=== PATIENT | male | born 2005 | race Caucasian/White ===

== ENCOUNTER 2024-09-04 18:48 | Inpatient (IN) ==
[2024-09-04 19:23] LABS: Basophils # (auto) 0.02 K/uL (0.00-0.20); Basophils % (auto) 0.2 %; Eosinophils # (auto) 0.07 K/uL (0.00-0.50); Eosinophils % (auto) 0.8 %; Hematocrit (blood only) 47.6 % (42.0-52.0); Hemoglobin 16.2 g/dl (14.0-18.0); Immature Granulocytes # (auto) 0.02 K/uL (0.01-0.20); Immature Granulocytes % (auto) 0.2 %; Lymphocytes # (auto) 0.42 K/uL (1.20-3.40); Lymphocytes % (auto) 4.8 %; Mean Corpuscular Hemoglobin 30.2 pg (25.0-34.0); Mean Corpuscular Volume 88.6 fL (80.0-100.0); Mean Platelet Volume 10.5 fL (9.4-12.4); Monocytes # (auto) 0.45 K/uL (0.11-0.59); Monocytes % (auto) 5.1 %; Neutrophils # (auto) 7.79 K/uL (1.40-6.50); Neutrophils % (auto) 88.9 %; Platelet Count 149 K/uL (130-400); RDW Coefficient of Variation 13.4 % (11.5-14.5); RDW Standard Deviation 43.7 fL (36.4-46.3); Red Blood Count 5.37 M/uL (4.70-6.10); White Blood Count 8.77 K/ul (4.8-10.8)
[2024-09-04] MEDS: SODIUM CHLORIDE 0.9% 1,000 ML IV ONE ×2 (19:35→21:23)
[2024-09-04] MEDS: ONDANSETRON INJ 2 MG/ML 2 ML VIAL IV STA ×2 (19:36→22:44)
[2024-09-04] MEDS: FAMOTIDINE 20MG IV PUSH 20 MG/5 ML SYR IV STA (19:36)
[2024-09-04] MEDS: diphenhydrAMINE 50 MG/ML VIAL IV STA (19:36)
[2024-09-04 19:39] LABS: Albumin Globulin Ratio 1.6 (0.9-2); Albumin Level 4.6 gm/dl (3.4-5.0); BUN Creatinine Ratio 20.5 (10-20); Bilirubin,Total 0.9 mg/dl (0.2-1.0); Calcium 9.7 mg/dl (8.6-10.3); Creatinine Clr Calc Pharmacy 107.5 ml/min; Globulin 2.8 gm/dl (2.5-4.0); Potassium 4.3 mmol/L (3.5-5.1); Total Protein 7.4 gm/dl (6.0-8.3)
[2024-09-04] MEDS: KETOROLAC TROMETHAMINE 15 MG/ML VIAL IV ONE (20:34)
[2024-09-04] MEDS: OPTIRAY 320 100ml IV ONE (20:46)
[2024-09-04 21:31] LABS: Appearance Urine Clear (Clear); Bacteria Urine Automated None Seen (None Seen); Bilirubin Urine Negative (Negative); Blood Urine Negative (Negative); Cast Urine Automated 0-2 /lpf (0-2); Color Urine Yellow; Epithelial Cell Urine Auto 0-2 /hpf (0-2); Glucose Urine UA Negative (Negative); Ketones Urine 1+ (Negative); Leukocyte Esterase Urine Negative (Negative); Nitrite Urine Negative (Negative); Protein Urine 1+ (Negative); RBC Urine Automated 0-2 /hpf (0-2); Urobilinogen Urine Negative (Negative); WBC Urine Automated 0-5 /hpf (0-5); pH Urine 6.5 (4.5-7.5)
--- NOTE | 2024-09-04 21:49 | Emergency Department Note ---
Impression & Plan Nausea & vomiting, Epigastric abdominal pain ED Provider Note CHIEF COMPLAINT: Vomiting, diarrhea and abdominal pain HISTORY OF PRESENT ILLNESS: This 18-year-old male patient with past medical history of lymphoma in remission and recent diagnosis of mono presents to the emergency department with sudden onset of vomiting and diarrhea at approximately 4 PM. Patient states that has been severe. He complains of epigastric abdominal pain. REVIEW OF SYSTEMS: A review of systems was performed with positives and pertinent negatives listed in the history of present illness. 10 systems were reviewed and are otherwise negative. ALLERGIES: see below MEDICATIONS: see below PMH: see below SOCIAL HISTORY: see below DDx: Viral gastroenteritis, foodborne process, bowel obstruction, ileus, UTI, dehydration among others. PHYSICAL EXAM: Vital signs reviewed. General: Well-appearing 18-year-old male, in no significant distress. curled up in a ball on the bed HEENT: No scleral icterus, PERRLA, neck supple. moist mucous membranes Cardiovascular: Regular rate and rhythm, no extra sounds. Pulmonary: Clear to auscultation bilaterally, normal work of breathing. Abdomen: Soft, mild tenderness to palpation of the epigastric region, no rebound or guarding nondistended, positive bowel sounds. Musculoskeletal: Atraumatic, no peripheral edema. Neurologic: Patient awake alert and oriented x 3, speech is clear Skin: Warm, dry, no rash EMERGENCY DEPARTMENT COURSE/MDM: This patient was evaluated and appeared to be in significant discomfort. IV access was obtained and laboratory work was drawn. The patient was placed on nurse monitoring noted to be in a normal sinus rhythm. He was hydrated with normal saline solution, given IV Zofran, IV Toradol. Patient felt some relief but continued to complain of discomfort. IV Benadryl and additional IV Zofran was administered. Patient still continued to have abdominal pain and dry heaves. Laboratory work is fairly reassuring, patient has a normal WBC and only slight elevation of the AST and ALT in the setting of recent mono diagnosis. Stool study is ordered however is not collected at this time. CT imaging of the abdomen pelvis was performed and at that time of the change of shift, the read was pending. Signout was given to Dr. Rubio at the change of shift please see his notes for further details. MONITORING: An order for cardiac monitoring was placed and the patient is noted to be in a normal sinus rhythm at 90 beats per minute. RADIOLOGY: CT of the abdomen and pelvis pending at the time of sign out. Abdomen/Pelvis CT 09/04/24 20:20 Exam(s): CT ABDOMEN + PELVIS With Contrast IV Amt: 93 ml optiray 320 EXAM: CT Abdomen and Pelvis With Intravenous Contrast CLINICAL HISTORY: Reason for exam: epigastric pain, vomiting, mono/LFTs. TECHNIQUE: Axial computed tomography images of the abdomen and pelvis with intravenous contrast. CTDI is 7.47 mGy and DLP is 375.58 mGy-cm. Automated exposure control was utilized for the study. A dose lowering technique was utilized adhering to the principles of ALARA. CONTRAST: Patient received 93 ml optiray 320 of IV contrast COMPARISON: No relevant prior studies available. FINDINGS: Lung bases: No consolidation. ABDOMEN: Liver: The liver is enlarged.. Gallbladder and bile ducts: The gallbladder is distended containing calculi. No ductal dilation. Pancreas: No mass. No ductal dilation. Spleen: The spleen is markedly enlarged.. Adrenals: No mass. Kidneys and ureters: No solid mass. No hydronephrosis. Stomach and bowel: There is fluid and air within the stomach. There are distended loops of small bowel containing fluid and air. Many of these demonstrate wall thickening. There is air and stool noted in the colon. There may be thickening of the joshi of the sigmoid colon and rectum.. PELVIS: Appendix: The appendix is not visualized.. Bladder: No calculi are noted within the bladder.. Reproductive: Unremarkable as visualized. ABDOMEN and PELVIS: Intraperitoneal space: No free air. No significant fluid collection. Bones/joints: There is a marked scoliosis.. Soft tissues: Unremarkable. Vasculature: No abdominal aortic aneurysm. Lymph nodes: No enlarged lymph nodes. IMPRESSION: The gallbladder is distended containing calculi. There is fluid and air within the stomach. There are distended loops of small bowel containing fluid and air. Many of these demonstrate wall thickening. This may represent a nonspecific enteritis. There is air and stool noted in the colon. There may be thickening of the joshi of the sigmoid colon and rectum. This may be due to under distention. Cannot exclude colitis. Hepatosplenomegaly. See discussion above. Electronically signed by: Tj Koenig MD 09/04/24 22:49 PM Gallbladder Ultrasound 09/04/24 23:11 EXAM: US gallbladder CLINICAL HISTORY: RUQ pain, transaminitis PANC: limited vis due to bowel LIVER: 12.5 cm, heterogenous appearing with ? periportal thickening and inc vascularity GB: wall = 3 mm, multiple mobile probable stones seen, Negative Loera''s CBD: 5 mm RK: 10.3 cm, slight fullness of pelvis Spleen noted to be large on exam = 21.1 cm Incidental note of ? FF adjacent to heart seen when scanning superior liver TECHNIQUE: Static ultrasound images with Grayscale and Doppler of the upper abdomen were submitted for review. COMPARISON: None. FINDINGS: The liver measures 12.5 cm with heterogeneous echotexture, nodular margins, and periportal thickening, consistent with chronic liver disease changes. The gallbladder demonstrates wall thickening measuring 3 mm with multiple mobile echogenic foci suggestive of gallstones. The common bile duct measures 5 mm in diameter. The pancreas is incompletely visualized due to overlying bowel gas. The spleen is enlarged, measuring 21.1 cm. The right kidney measures 10.3 cm with slight fullness of the renal pelvis. Mild pericardial effusion is noted. IMPRESSION: 1. Changes of chronic liver disease with marked splenomegaly. 2. Cholelithiasis with gallbladder wall thickening. Suggested clinical correlation to look for cholecystitis. 3. Mild pericardial effusion. 4. Mild right renal pelvis fullness. Electronically signed by Pedro Mayer 09-05-2024 01:50 AM Chest X-Ray 09/05/24 02:19 EXAM: XR chest 1V portable CLINICAL HISTORY: PERICARDIAL EFFUSION WTW TECHNIQUE: An X-ray image of the chest is obtained in AP projection. COMPARISON: Prior study dated 09/01/2024. FINDINGS: Pulmonary Parenchyma: Faint right lower opacity could be an infection, follow-up is needed. Hyperinflated both lung fuentes, as noted by flattening of both hemidiaphragm and increased overall lucency. Prominent both hilar and vascular markings, likely denoting pulmonary congestion. No evidence of consolidation, collapse, or focal opacities. No pulmonary nodules are identified. No evidence of pleural effusion or pleural thickening. Heart and Mediastinum: Heart size and shape are normal. No mediastinal widening or masses. No hilar or mediastinal lymphadenopathy. Bony Thorax: Thoracic spine dextroscoliosis. Bony thorax appears intact without fractures or deformities. Soft Tissues: Soft tissues overlying the chest wall are unremarkable. IMPRESSION: 1. Stable hyperinflated both lung fuentes. 2. Faint right lower opacity could be an infection, follow-up is needed. 3. Interval progressive Prominent both hilar and vascular markings, denoting pulmonary congestion. 4. No signs of pericardial effusion evident by x-ray, (noted previously by ultrasound). 5. No acute cardiopulmonary abnormalities are identified. Electronically signed by Itzel Maykeljose 09-05-2024 03:44 AM DISPOSITION: pending Past Med/Surg History Problem List (Updated 09/08/24 @ 20:24 by Nora Sexton MD) Epigastric abdominal pain (Acute) Nausea & vomiting (Acute) Abdominal pain Cholelithiasis Acute cholecystitis Transaminitis (Acute) Thrombocytopenia (Acute) Leukopenia (Acute) Lymphadenopathy (Acute) Medical History Lymphoma in remission Social History Smoking Status: Former smoker Tobacco Type: Declines Second Hand Exposure: No; Do You Dip or Chew Tobacco: No; Hx Alcohol Use: No Hx Substance Use: No Preferred Language: Lithuanian [employer] Required: No Beliefs That Will Affect Care: None Current Living Situation: Other Current Living Situation Comment: [facility] Feels Safe at Home: Yes Assistive Devices: None Allergies Allergies Allergy/AdvReac Type Severity Reaction Status Date / Time No Known Allergies Allergy Unverified 09/05/24 02:04 Home Meds Home Medications Medication Instructions Recorded Confirmed methylphenidate HCl 10 mg tablet 10 mg PO DAILY PRN DIRECTED 09/05/24 09/05/24 (Ritalin) methylphenidate HCl 18 mg 18 mg PO QAM 09/05/24 09/05/24 tablet,extended release 24 hr (Concerta) Previous Rx's Medication Instructions Recorded famotidine 20 mg tablet (Pepcid) 20 mg PO DAILY #7 tabs 09/06/24 ondansetron 4 mg disintegrating 4 mg PO Q8H 3 days #9 tabs 09/06/24 tablet Results & Data (ED) Vital Signs Vital Signs - 24 hr 09/04/24 18:56 09/04/24 19:16 09/04/24 19:18 Temperature 36.6 C Temperature Source Temporal Artery Scan Pulse Rate 125 H 117 H Pulse Rate [Finger] 120 H Respiratory Rate 18 24 Respiratory Effort / Characteristics Non-Labored Spontaneous Non-Labored Spontaneous Respiratory Depth Normal Respiratory Pattern Regular Blood Pressure 104/61 Blood Pressure [Left Arm] 112/68 Blood Pressure Mean 75 Blood Pressure Mean [Left Arm] 82 Blood Pressure Position [Left Arm] Lying Pulse Oximetry 99 95 Oxygen Delivery Method Room Air Room Air Sepsis Recent Fever Within 48 Hours No Sepsis New/Unexplained Change in Mental Status N/A Sepsis Action Taken by Nursing No Action Required 09/04/24 19:18 09/04/24 19:25 09/04/24 20:37 Temperature Temperature Source Pulse Rate 109 H Pulse Rate [Finger] 94 H Respiratory Rate 20 18 18 Respiratory Effort / Characteristics Non-Labored Spontaneous Respiratory Depth Normal Respiratory Pattern Blood Pressure Blood Pressure [Left Arm] 97/63 L Blood Pressure Mean Blood Pressure Mean [Left Arm] 74 Blood Pressure Position [Left Arm] Lying Pulse Oximetry 97 99 100 Oxygen Delivery Method Room Air Room Air Room Air Sepsis Recent Fever Within 48 Hours Sepsis New/Unexplained Change in Mental Status Sepsis Action Taken by Nursing 09/04/24 21:25 Temperature Temperature Source Pulse Rate Pulse Rate [Finger] 90 Respiratory Rate 18 Respiratory Effort / Characteristics Non-Labored Spontaneous Respiratory Depth Normal Respiratory Pattern Blood Pressure Blood Pressure [Left Arm] 111/66 Blood Pressure Mean Blood Pressure Mean [Left Arm] 81 Blood Pressure Position [Left Arm] Lying Pulse Oximetry 98 Oxygen Delivery Method Room Air Sepsis Recent Fever Within 48 Hours Sepsis New/Unexplained Change in Mental Status Sepsis Action Taken by [facility] Medications Current Medication List: was personally reviewed by me Laboratory Data Attestation: I reviewed the patient's lab results. 09/06/24 06:02 09/06/24 06:02 Lab Results 09/04/24 09/04/24 09/05/24 Range/Units 19:05 21:15 03:21 WBC 8.77 (4.8-10.8) K/ul RBC 5.37 (4.70-6.10) M/uL Hgb 16.2 (14.0-18.0) g/dl Hct 47.6 (42.0-52.0) % MCV 88.6 (80.0-100.0) fL MCH 30.2 (25.0-34.0) pg MCHC 34.0 (32.0-36.0) g/dL RDW Std Deviation 43.7 (36.4-46.3) fL RDW Coeff of Va 13.4 (11.5-14.5) % Plt Count 149 (130-400) K/uL MPV 10.5 (9.4-12.4) fL Immature Gran % (Auto) 0.2 % Neut % (Auto) 88.9 % Lymph % (Auto) 4.8 % [place] % (Auto) 5.1 % Eos % (Auto) 0.8 % Baso % (Auto) 0.2 % Neut # (Auto) 7.79 H (1.40-6.50) K/uL Lymph # (Auto) 0.42 L (1.20-3.40) K/uL [place] # (Auto) 0.45 (0.11-0.59) K/uL Eos # (Auto) 0.07 (0.00-0.50) K/uL Baso # (Auto) 0.02 (0.00-0.20) K/uL Immature Gran # (Auto) 0.02 (0.01-0.20) K/uL Toxic Vacuolation 2+ RBC Morphology Unremarkable Sodium 139 (136-145) mmol/L Potassium 4.3 (3.5-5.1) mmol/L Chloride 104 (98-107) mmol/L Carbon Dioxide 27 (21-32) mmol/L Anion Gap 8 (3-11) BUN 16 (6-23) mg/dl Creatinine 0.78 (0.6-1.4) mg/dl Est Cr Clr Drug Dosing 107.5 ml/min eGFR 131.75 BUN/Creatinine Ratio 20.5 H (10-20) Glucose 99 (70-99(Fasting)) mg/dl Calcium 9.7 (8.6-10.3) mg/dl Total Bilirubin 0.9 (0.2-1.0) mg/dl AST 55 H (13-39) U/L ALT 83 H (7-52) U/L Alkaline Phosphatase 129 H (34-104) U/L Troponin I High Sens 2.3 (0-20) pg/ml Total Protein 7.4 (6.0-8.3) gm/dl Albumin 4.6 (3.4-5.0) gm/dl Globulin 2.8 (2.5-4.0) gm/dl Albumin/Globulin Ratio 1.6 (0.9-2) Lipase 44 (11-82) U/L Urine Color Yellow Urine Appearance Clear (Clear) Urine pH 6.5 (4.5-7.5) Ur Specific [place] 1.040 H (1.000-1.030) Urine Protein 1+ H (Negative) Urine Glucose (UA) Negative (Negative) Urine Ketones 1+ H (Negative) Urine Blood Negative (Negative) Urine Nitrite Negative (Negative) Urine Bilirubin Negative (Negative) Urine Urobilinogen Negative (Negative) Ur Leukocyte Esterase Negative (Negative) Urine WBC (Auto) 0-5 (0-5) /hpf Urine RBC (Auto) 0-2 (0-2) /hpf U Hyaline Cast (Auto) 0-2 (0-2) /lpf U Epithel Cells (Auto) 0-2 (0-2) /hpf Urine Bacteria (Auto) None Seen (None Seen) Adenovirus (PCR) Not Detected (NotDetected) Anaplasma Smear See Comment Babesia Smear See Comment B. pertussis DNA (PCR) Not Detected (NotDetected) B.parapertussis DNA PCR Not Detected (NotDetected) C. pneumoniae DNA (PCR) Not Detected (NotDetected) Coronavirus OC43 (PCR) Not Detected (NotDetected) Coronavirus HKU1 (PCR) Not Detected (NotDetected) Coronavirus 229E (PCR) Not Detected (NotDetected) SARS-CoV-2 (PCR) Not Detected (NotDetected) Coronavirus NL63 (PCR) Not Detected (NotDetected) EBV Capsid Ag IgG Ab <18.00 U/mL EBV Capsid Ag IgM Ab <36.00 U/mL EBV EA Restrict+Diffuse <9.00 U/mL EBV Nuclear Antigen Ab <18.00 U/mL EBV Antibody Interp SEE NOTE Monoscreen Negative (Negative) Human Metapneumovir PCR Not Detected (NotDetected) Influenza Type A (PCR) Not Detected (NotDetected) Influenza Type B (PCR) Not Detected (NotDetected) M. pneumoniae (PCR) Not Detected (NotDetected) Parainfluenza 1 (PCR) Not Detected (NotDetected) Parainfluenza 2 (PCR) Not Detected (NotDetected) Parainfluenza 3 (PCR) Not Detected (NotDetected) Parainfluenza 4 (PCR) Not Detected (NotDetected) RSV (PCR) Not Detected (NotDetected) Entero/Rhino (PCR) Not Detected (NotDetected) Administered Medications Discontinued Medications Diphenhydramine HCl (Diphenhydramine 50 Mg/Ml Vial) 25 mg IV NOW STA Stop: 09/04/24 19:25 Last Admin: 09/04/24 19:36 Dose: 25 mg Documented By: MELVIN Famotidine (Famotidine 10 Mg Tablet) 10 mg PO NOW ONE Stop: 09/05/24 12:31 Last Admin: 09/05/24 12:41 Dose: 10 mg Documented By: JANIE Famotidine (Famotidine 20 Mg Tab) 20 mg PO BID JOSHUA Stop: 10/05/24 20:59 Last Admin: 09/06/24 09:29 Dose: 20 mg Documented By: Admin: 09/05/24 21:57 Dose: 20 mg Documented By: JHON Famotidine (Pepcid 20mg Iv Push) 20 mg in 5 mls @ 2.5 mls/min IV NOW STA Stop: 09/04/24 19:25 Last Admin: 09/04/24 19:36 Dose: 2.5 mls/min Documented By: MELVIN Sodium Chloride (Nss) 1,000 mls @ 999 mls/hr IV .Q1H1M ONE Stop: 09/04/24 20:24 Last Infusion: 09/04/24 20:36 Dose: Infused Documented By: Admin: 09/04/24 19:35 Dose: 999 mls/hr Documented By: MELVIN Sodium Chloride (Nss) 1,000 mls @ 999 mls/hr IV .Q1H1M ONE Stop: 09/04/24 22:13 Last Infusion: 09/04/24 22:29 Dose: Infused Documented By: Admin: 09/04/24 21:23 Dose: 999 mls/hr Documented By: MELVIN Piperacillin Sod/Tazobactam Sod (Zosyn) 4.5 gm in 100 mls @ 200 mls/hr IV NOW ONE; Protocol Stop: 09/05/24 03:53 Last Infusion: 09/05/24 04:43 Dose: Infused Documented By: Admin: 09/05/24 04:12 Dose: 200 mls/hr Documented By: RUBIO Sodium Chloride (Nss) 1,000 mls @ 125 mls/hr IV .Q8H JOSHUA Stop: 09/05/24 12:14 Last Infusion: 09/05/24 11:55 Dose: Infused Documented By: Admin: 09/05/24 04:16 Dose: 125 mls/hr Documented By: RUBIO Piperacillin Sod/Tazobactam Sod (Zosyn) 4.5 gm in 100 mls @ 25 mls/hr IV Q8H JOSHUA; Protocol Stop: 09/15/24 09:59 Last Admin: 09/05/24 10:55 Dose: Not Given Documented By: JANIE Sodium Chloride (Nss) 1,000 mls @ 125 mls/hr IV .Q8H JOSHUA Stop: 09/06/24 13:29 Last Infusion: 09/06/24 12:36 Dose: Infused Documented By: Admin: 09/06/24 06:10 Dose: 125 mls/hr Documented By: Infusion: 09/06/24 05:57 Dose: Infused Documented By: Admin: 09/05/24 21:57 Dose: 125 mls/hr Documented By: Infusion: 09/05/24 21:57 Dose: Infused Documented By: Admin: 09/05/24 14:20 Dose: 125 mls/hr Documented By: JANIE Ioversol (Optiray 320 100ml) 93 ml IV ONCE ONE Stop: 09/04/24 20:46 Last Admin: 09/04/24 20:46 Dose: 93 ml Documented By: LEIF Ketorolac Tromethamine (Ketorolac Tromethamine 15 Mg/Ml Vial) 10 mg IV NOW ONE Stop: 09/04/24 20:21 Last Admin: 09/04/24 20:34 Dose: 10 mg Documented By: MELVIN Ketorolac Tromethamine (Ketorolac Tromethamine 15 Mg/Ml Vial) 10 mg IV NOW ONE Stop: 09/05/24 07:39 Last Admin: 09/05/24 08:03 Dose: 10 mg Documented By: JANIE Metoclopramide HCl (Metoclopramide Hcl Inj 5 Mg/Ml 2 Ml Vial) 5 mg IV NOW STA Stop: 09/05/24 03:43 Last Admin: 09/05/24 04:12 Dose: 5 mg Documented By: RUBIO Morphine Sulfate (Morphine Sulfate 2 Mg/Ml Carp) 2 mg IV NOW STA Stop: 09/04/24 22:37 Last Admin: 09/04/24 22:43 Dose: 2 mg Documented By: MELVIN Morphine Sulfate (Morphine Sulfate 4 Mg/Ml 1 Ml Carp\Vial) 4 mg IV NOW STA Stop: 09/04/24 23:12 Last Admin: 09/04/24 23:18 Dose: 4 mg Documented By: REGIS Ondansetron HCl (Ondansetron Inj 2 Mg/Ml 2 Ml Vial) 4 mg IV NOW STA Stop: 09/04/24 19:25 Last Admin: 09/04/24 19:36 Dose: 4 mg Documented By: MELVIN Ondansetron HCl (Ondansetron Inj 2 Mg/Ml 2 Ml Vial) 4 mg IV NOW STA Stop: 09/04/24 22:37 Last Admin: 09/04/24 22:44 Dose: 4 mg Documented By: MELVIN Ondansetron HCl (Ondansetron Inj 2 Mg/Ml 2 Ml Vial) 4 mg IV NOW STA Stop: 09/05/24 04:05 Last Admin: 09/05/24 04:43 Dose: Not Given Documented By: RUBIO Ondansetron HCl (Ondansetron Inj 2 Mg/Ml 2 Ml Vial) 4 mg IV Q6H PRN PRN Reason: Nausea Stop: 10/05/24 05:09 Last Admin: 09/05/24 07:35 Dose: 4 mg Documented By: JANIE Potassium Phosphate (Pot Phosphate Monobasic W/ Sod Tab) 1 tab PO Q8H JOSHUA Stop: 09/07/24 08:01 Last Admin: 09/06/24 09:30 Dose: 1 tab Documented By: HEIDY Prochlorperazine (Prochlorperazine Maleate 5 Mg Tab) 5 mg PO NOW ONE Stop: 09/05/24 12:31 Last Admin: 09/05/24 12:41 Dose: 5 mg Documented By: JANIE Discharge Plan Visit Data Chief Complaint: Vomiting Stated Complaint: VOMITING,NEAR SYNCOPE ED Provider: Narinder Barber Discharge Problem: Nausea & vomiting, Epigastric abdominal pain Patient Disposition: Admitted As Inpatient Discharge Instructions Interventions: ED Discharge Assessment Last Done: 09/05/24 05:11 Discharge Problem: Nausea & vomiting Qualifiers: Vomiting type: unspecified Qualified Code(s): R11.2 - Nausea with vomiting, unspecified
[2024-09-04] MEDS: MoRPHine SULFATE 2 MG/ML CARP IV STA (22:43)
--- NOTE | 2024-09-04 22:50 | CT Scan Report ---
Exam(s): CT ABDOMEN + PELVIS With Contrast IV Amt: 93 ml optiray 320 EXAM: CT Abdomen and Pelvis With Intravenous Contrast CLINICAL HISTORY: Reason for exam: epigastric pain, vomiting, mono/LFTs. TECHNIQUE: Axial computed tomography images of the abdomen and pelvis with intravenous contrast. CTDI is 7.47 mGy and DLP is 375.58 mGy-cm. Automated exposure control was utilized for the study. A dose lowering technique was utilized adhering to the principles of ALARA. CONTRAST: Patient received 93 ml optiray 320 of IV contrast COMPARISON: No relevant prior studies available. FINDINGS: Lung bases: No consolidation. ABDOMEN: Liver: The liver is enlarged.. Gallbladder and bile ducts: The gallbladder is distended containing calculi. No ductal dilation. Pancreas: No mass. No ductal dilation. Spleen: The spleen is markedly enlarged.. Adrenals: No mass. Kidneys and ureters: No solid mass. No hydronephrosis. Stomach and bowel: There is fluid and air within the stomach. There are distended loops of small bowel containing fluid and air. Many of these demonstrate wall thickening. There is air and stool noted in the colon. There may be thickening of the joshi of the sigmoid colon and rectum.. PELVIS: Appendix: The appendix is not visualized.. Bladder: No calculi are noted within the bladder.. Reproductive: Unremarkable as visualized. ABDOMEN and PELVIS: Intraperitoneal space: No free air. No significant fluid collection. Bones/joints: There is a marked scoliosis.. Soft tissues: Unremarkable. Vasculature: No abdominal aortic aneurysm. Lymph nodes: No enlarged lymph nodes. IMPRESSION: The gallbladder is distended containing calculi. There is fluid and air within the stomach. There are distended loops of small bowel containing fluid and air. Many of these demonstrate wall thickening. This may represent a nonspecific enteritis. There is air and stool noted in the colon. There may be thickening of the joshi of the sigmoid colon and rectum. This may be due to under distention. Cannot exclude colitis. Hepatosplenomegaly. See discussion above. Electronically signed by: Tj Koenig MD 09/04/24 22:49 PM
[2024-09-04] MEDS: MoRPHine SULFATE 4 MG/ML 1 ML CARP\\VIAL IV STA (23:18)
--- NOTE | 2024-09-05 01:51 | Ultrasound Report ---
EXAM: US gallbladder CLINICAL HISTORY: RUQ pain, transaminitis PANC: limited vis due to bowel LIVER: 12.5 cm, heterogenous appearing with ? periportal thickening and inc vascularity GB: wall = 3 mm, multiple mobile probable stones seen, Negative Loera''s CBD: 5 mm RK: 10.3 cm, slight fullness of pelvis Spleen noted to be large on exam = 21.1 cm Incidental note of ? FF adjacent to heart seen when scanning superior liver TECHNIQUE: Static ultrasound images with Grayscale and Doppler of the upper abdomen were submitted for review. COMPARISON: None. FINDINGS: The liver measures 12.5 cm with heterogeneous echotexture, nodular margins, and periportal thickening, consistent with chronic liver disease changes. The gallbladder demonstrates wall thickening measuring 3 mm with multiple mobile echogenic foci suggestive of gallstones. The common bile duct measures 5 mm in diameter. The pancreas is incompletely visualized due to overlying bowel gas. The spleen is enlarged, measuring 21.1 cm. The right kidney measures 10.3 cm with slight fullness of the renal pelvis. Mild pericardial effusion is noted. IMPRESSION: 1. Changes of chronic liver disease with marked splenomegaly. 2. Cholelithiasis with gallbladder wall thickening. Suggested clinical correlation to look for cholecystitis. 3. Mild pericardial effusion. 4. Mild right renal pelvis fullness. Electronically signed by Pedro Mayer 09-05-2024 01:50 AM
--- NOTE | 2024-09-05 02:10 | Emergency Department Note ---
ED Visit Note Patient was signed out to me at change of shift by Dr. Sexton, pending the results of CT imaging of the abdomen pelvis. CT imaging of the abdomen pelvis returned and does show questionable biliary pathology with cholelithiasis and gallbladder distention. On my assessment the patient does have some tenderness over the epigastric area as well as the right upper quadrant. He is hemodynamically stable, he states his symptoms have been worsening since about 4 PM. Patient was given a dose of additional pain medication here in the ED with IV morphine. Given findings on CT imaging I did obtain ultrasound imaging of the right upper quadrant that redemonstrates gallbladder distention and cholelithiasis with concern for some gallbladder wall thickening. Ultrasound imaging also shows a mild pericardial effusion. Chest x-ray does not show any evidence of any obvious acute abnormalities per my interpretation. Formal interpretation by radiology is pending. EKG shows sinus tachycardia without any acute ischemic changes or evidence of arrhythmia. Troponin is normal. Frontier screening today is noted to be negative. On my reassessment the patient's pain is improved but he does remain tender in the right upper quadrant, therefore did contact on-call general surgery, case was discussed with the on-call midlevel provider, Phoenix Russo PA-C at [phone]. patient will be evaluated at the bedside and then staffed with Dr. Ac who is the on-call general surgery attending this evening. Patient was then signed out to my colleague, Dr. Barber, pending general surgery evaluation and recommendations. Anticipate admission for further management. Jake Rubio, DO EKG: (As interpreted by myself): Rate: 103 Rhythm: Sinus tachycardia Intervals: Within normal limits ST changes: No ST elevation Time: 0249 .
[2024-09-05 02:58] LABS: Troponin I High Sensitivity 2.3 pg/ml (0-20)
--- NOTE | 2024-09-05 03:01 | Emergency Department Note ---
ED Visit Note Patient is a 18-year-old male who was signed out to me by Dr. KILPATRICK who presented with nausea vomiting and epigastric abdominal pain. CT showed a distended gallbladder with cholelithiasis. Does have a mild transaminitis. Ultrasound was obtained and general surgery was consulted. Currently awaiting evaluation by general surgery. Discussed with general surgery who evaluated the patient recommended admission to the hospitalist with antibiotics and repeat LFTs. This was discussed with Dr. Joanna Walden. Patient was ordered IV Zosyn. .
--- NOTE | 2024-09-05 03:28 | Surgery Consultation ---
Date of Consultation September 05, 2024 Assessment & Plan (1) Abdominal pain: (2) Transaminitis: Plan Patient is a 18-year-old male who presented to the ED with acute onset of abdominal pain, nausea, vomiting and diarrhea x 1 day. To note, the patient was recently diagnosed with mono last week as well. He states his symptoms started around 4PM yesterday afternoon and have been persistent since. He was worked up in the ED and imaging demonstrated gallstones and gallbladder wall thickening of 3mm and labs with normal WBC but elevated LFTs. Transaminitis could be related to gallbladder disease or also from recent diagnosis of mono. Patient was also noted to have evidence of possible enteritis on imaging as well. He was seen and evaluated in the ED early this morning, he continues with nausea and ongoing abdominal pain that is diffuse throughout his abdomen however he does have moderate tenderness in the RUQ. Currently it is unclear if his abdominal pain and associated symptoms are from acute cholecystitis vs possible infectious process. The patient's case was discussed with on-call attending surgeon, Dr. Ac, and from a surgical standpoint recommend the following: -Keep NPO for now, IV hydration -IV antibiotics and will continue to trend WBC -Repeat LFTs this AM -Pain control -Medical management per primary team, surgery will continue to follow Supervising Physician Co-Signing Physician Notes 18-year-old male with mononucleosis and cholelithiasis His CT and US images and results were personally viewed and interpreted by myself He has hepatosplenomegaly and generalized abdominal pain No clinical signs of cholecystitis Can advance diet from a surgical standpoint today and see how he does Surgery will follow History of Present Illness Reason for Consultation: Cholelithiasis History of Present Illness Patient is a 18-year-old male with a PMH significant fo Lymphoma in remission and recent diagnosis of mono last week who presented to the ED last evening for complaints of acute onset of abdominal pain, nausea, vomiting and diarrhea. Patient states his symptoms started roughly 4PM yesterday and have been consistent without any relief. He states his abdominal pain started in his epigastric region however it has moved throughout his entire abdomen. Upon workup he was found to have cholelithiasis and possible enteritis. WBC is 8.7 and LFTs slightly elevated however Tbili is wnl. Ultrasound imaging was also concerning for mild pericardial effusion, EKG demonstrated sinus tachycardia without any acute ischemic changes or arrhythmias and his troponin level is normal. Due to concerns of possible acute cholecystitis the patient was seen and ev aluated early this morning at bedside in the ED. He is slightly tachycardic with HR in 110s otherwise BP is stable and patient is nontoxic appearing. Patient states he still has ongoing nausea and abdominal pain. He does have a past surgical history of a laparoscopic appendectomy a few years ago. Allergies Allergy/AdvReac Type Severity Reaction Status Date / Time No Known Allergies Allergy Unverified 09/05/24 02:04 Home Medications Medication Instructions Recorded Confirmed Type methylphenidate HCl 10 mg tablet 10 mg PO DAILY PRN DIRECTED 09/05/24 09/05/24 History (Ritalin) methylphenidate HCl 18 mg 18 mg PO QAM 09/05/24 09/05/24 History tablet,extended release 24 hr (Concerta) Patient History Medical History Lymphoma in remission Social History Smoking Status: Former smoker Tobacco Type: Declines Second Hand Exposure: No; Do You Dip or Chew Tobacco: No; Tobacco Cessation Education Requested by Patient: No Hx Alcohol Use: No Hx Substance Use: No Preferred Language: Maltese Supervisor Telephone Answering Service Required: No Beliefs That Will Affect Care: None Current Living Situation: Other Current Living Situation Comment: [facility] Other Information That Helps Us Care for You: No Feels Safe at Home: Yes Safety Concerns: Feels Safe At This Time Assistive Devices: None Review of Systems Review of Systems: All systems reviewed & are unremarkable except as noted in HPI & below Gastrointestinal: + abdominal pain, + nausea, + vomiting a nd + diarrhea/loose stools Physical Exam Constitutional: WD/WN, vitals as above Respiratory: normal respiratory effort, lungs clear to auscultation Cardiovascular: Rate/Rhythm: regular rhythm and + tachycardic Heart Sounds: normal S1 and normal S2 Gastrointestinal (Abdomen): Inspection/Auscultation: abdomen normal to inspection; abdomen not distended Percussion/Palpation: + abdomen tender (TTP throughout, +RUQ pain ) and abdomen soft; no guarding, abdomen not rigid and abdomen not firm Skin: no rashes, warm and dry Psychiatric: A+Ox3, euthymic affect Results & Data Vital Signs (Past 12 Hours) Vital Signs Temp Pulse Pulse Resp BP BP Pulse Ox 09/05/24 03:17 111 H 18 117/66 97 09/05/24 00:00 90 18 118/71 98 09/04/24 23:25 106 H 09/04/24 22:00 108 H 18 106/60 98 09/04/24 21:25 90 18 111/66 98 09/04/24 20:37 94 H 18 97/63 L 100 09/04/24 19:25 18 99 09/04/24 19:18 109 H 20 97 09/04/24 19:18 120 H 24 112/68 95 09/04/24 19:16 117 H 09/04/24 18:56 36.6 C 125 H 18 104/61 99 O2 Del Method 09/05/24 03:17 Room Air 09/05/24 00:00 Room Air 09/04/24 23:25 09/04/24 22:00 Room Air 09/04/24 21:25 Room Air 09/04/24 20:37 Room Air 09/04/24 19:25 Room Air 09/04/24 19:18 Room Air 09/04/24 19:18 Room Air 09/04/24 19:16 09/04/24 18:56 Room Air Diagnostic Findings Exam(s): CT ABDOMEN + PELVIS With Contrast IV Amt: 93 ml optiray 320 EXAM: CT Abdomen and Pelvis With Intravenous Contrast CLINICAL HISTORY: Reason for exam: epigastric pain, vomiting, mono/LFTs. TECHNIQUE: Axial computed tomography images of the abdomen and pelvis with intravenous contrast. CTDI is 7.47 mGy and DLP is 375.58 mGy-cm. Automated exposure control was utilized for the study. A dose lowering technique was utilized adhering to the principles of ALARA. CONTRAST: Patient received 93 ml optiray 320 of IV contrast COMPARISON: No relevant prior studies available. FINDINGS: Lung bases: No consolidation. ABDOMEN: Liver: The liver is enlarged.. Gallbladder and bile ducts: The gallbladder is distended containing calculi. No ductal dilation. Pancreas: No mass. No ductal dilation. Spleen: The spleen is markedly enlarged.. Adrenals: No mass. Kidneys and ureters: No solid mass. No hydronephrosis. Stomach and bowel: There is fluid and air within the stomach. There are distended loops of small bowel containing fluid and air. Many of these demonstrate wall thickening. There is air and stool noted in the colon. There may be thickening of the joshi of the sigmoid colon and rectum.. PELVIS: Appendix: The appendix is not visualized.. Bladder: No calculi are noted within the bladder.. Reproductive: Unremarkable as visualized. ABDOMEN and PELVIS: Intraperitoneal space: No free air. No significant fluid collection. Bones/joints: There is a marked scoliosis.. Soft tissues: Unremarkable. Vasculature: No abdominal aortic aneurysm. Lymph nodes: No enlarged lymph nodes. IMPRESSION: The gallbladder is distended containing calculi. There is fluid and air within the stomach. There are distended loops of small bowel containing fluid and air. Many of these demonstrate wall thickening. This may represent a nonspecific enteritis. There is air and stool noted in the colon. There may be thickening of the joshi of the sigmoid colon and rectum. This may be due to under distention. Cannot exclude colitis. Hepatosplenomegaly. See discussion above EXAM: US gallbladder CLINICAL HISTORY: RUQ pain, transaminitis PANC: limited vis due to bowel LIVER: 12.5 cm, heterogenous appearing with ? periportal thickening and inc vascularity GB: wall = 3 mm, multiple mobile probable stones seen, Negative Loera''s CBD: 5 mm RK: 10.3 cm, slight fullness of pelvis Spleen noted to be large on exam = 21.1 cm Incidental note of ? FF adjacent to heart seen when scanning superior liver TECHNIQUE: Static ultrasound images with Grayscale and Doppler of the upper abdomen were submitted for review. COMPARISON: None. FINDINGS: The liver measures 12.5 cm with heterogeneous echotexture, nodular margins, and periportal thickening, consistent with chronic liver disease changes. The gallbladder demonstrates wall thickening measuring 3 mm with multiple mobile echogenic foci suggestive of gallstones. The common bile duct measures 5 mm in diameter. The pancreas is incompletely visualized due to overlying bowel gas. The spleen is enlarged, measuring 21.1 cm. The right kidney measures 10.3 cm with slight fullness of the renal pelvis. Mild pericardial effusion is noted. IMPRESSION: 1. Changes of chronic liver disease with marked splenomegaly. 2. Cholelithiasis with gallbladder wall thickening. Suggested clinical correlation to look for cholecystitis. 3. Mild pericardial effusion. 4. Mild right renal pelvis fullness. . PG Care Time/CCT Total # of Minutes Spent Total Time Spent with Patient: Total time spent is greater than 50% in coordination of care (as documented) at patient's floor/unit and/or counseling patient: Coding Level of Care Code 16817 Office/OBS Consult Lvl 1 Diagnoses Abdominal pain R10.9 Transaminitis R74.01
--- NOTE | 2024-09-05 03:42 | History & Physical Report ---
Date of Service September 05, 2024 Assessment & Plan (1) Transaminitis: (2) Lymphoma in remission: (3) Cholelithiasis: (4) Abdominal pain: (5) Nausea & vomiting: Plan Acute Cholecystitis | Abdominal Pain | Intractable Nausea, Vomiting -Diffuse abdominal pain present on exam, symptoms started mid-afternoon on 09/04 -CT A/P and gallbladder ultrasound show evidence of possible cholecystitis. -CT also notes distended loops of small bowel representing nonspecific enteritis and thickening of joshi of sigmoid colon/rectum, cannot exclude colitis -Stool biofire ordered -General surgery consulted, initial recommendations do not include surgical intervention -Will continue Zosyn q8h -Keep NPO. IV fluids ordered, NSS @ 125ml/h. Mild tachycardia with HR in 100s -WBC 8.77, elevated neutrophils on admission. Repeat CBC with diff, CMP in a.m. -Mild transaminitis (as below) and hepatosplenomegaly noted on imaging. Will order tickborne disease panel to rule out other etiologies of current symptoms -Zofran PRN for nausea. Tylenol, Morphine PRN for pain. Mononucleosis | Hepatosplenomegaly | Elevated LFTs -Reported to have had positive mono test at urgent care, exposed to roommate with confirmed mononucleosis -Monospot in ED (09/01) negative, EBV panel also negative at that time -Repeat Monospot on admission was negative, repeat EBV panel pending. Respiratory biofire negative -Hepatosplenomegaly noted on CT imaging -Mild transaminitis: AST 55, ALT 83, alk phos 129 History of Lymphoma -CXR completed at urgent care reportedly showed bilateral perihilar lymphadenopathy (on 09/01) -CT and chest x-ray completed today on admission do not remark on any lymphadenopathy. CXR today read as possible faint right lower lung opacity, however lungs clear on exam and no respiratory symptoms at present. -Oncology follow up was scheduled for 09/18 at time of last ED visit Note: ultrasound reported possible mild pericardial effusion, however no evidence of pericardial effusion noted on CT A/P or chest x-ray. Will defer further imaging/echocardiogram at time of admission, could consider later during admission if clinically indicated. Admit to: med/surg VTE Prophylaxis: Low risk, defer while awaiting further surgical evaluation Diet: NPO, IV fluids- NSS 125ml/hr x1L Code Status: Full Code History of Present Illness Primary Care Provider: [facility] Pineda Roldan is a 18 year-old male with a medical history significant for lymphoma, s/p appendectomy, ADHD. Patient presented to the ED due to concern of ongoing nausea/vomiting and abdominal pain. HPI obtained from patient as well as ED provider documentation. Symptoms started at approximately 4pm on 09/04. Reports that the abdominal pain originated in the epigastric region and later became more diffuse across his entire abdomen. States the last thing he was able to eat was a burger at lunch, since symptoms started he has not eaten anything and had an episode of vomiting after having some ice chips. Patient denies chest pain or shortness of breath. States that the pain and nausea improve with the medications he has received in the ED but it is short lived. Endorses body aches and chills, requests additional warm blankets during encounter. Patient appears visibly uncomfortable during encounter, short responses to questions but is alert/oriented. ED Records from 09/01 indicate that the patient was evaluated at [facility] on the same day due to exposure to mononucleosis, two weeks of a cough and some congestion (his roommate had mono). At [facility], he had a chest x-ray completed which showed "bilateral perihilar lymphadenopathy measuring 5 to 6 mm", with patient's history of lymphoma (in remission for approximately 7 years) it was recommended he be evaluated in the ED on 09/01. Patient also reportedly tested positive for mononucleosis at [facility]. During ED evaluation on 09/01, the ED provider was able to contact his oncologist group in [place] and additional labs (uric acid, LDH, peripheral smear) were completed at their request. Patient was also scheduled for follow up with the oncologist when he returns home to [place] for winter break later in August. ED Course: -Chest x-ray -CT A/P -Gallbladder ultrasound -CBC, CMP -Respiratory biofire -EBV panel, monospot Allergies Allergy/AdvReac Type Severity Reaction Status Date / Time No Known Allergies Allergy Unverified 09/05/24 02:04 Home Medications Medication Instructions Recorded Confirmed Type methylphenidate HCl 10 mg tablet 10 mg PO DAILY PRN DIRECTED 09/05/24 09/05/24 History (Ritalin) methylphenidate HCl 18 mg 18 mg PO QAM 09/05/24 09/05/24 History tablet,extended release 24 hr (Concerta) Past Med/Surg History Problem List Nausea & vomiting Abdominal pain Cholelithiasis Acute cholecystitis Transaminitis (Acute) Thrombocytopenia (Acute) Leukopenia (Acute) Lymphadenopathy (Acute) Medical History Lymphoma in remission Social History Smoking Status: Former smoker Tobacco Type: Declines Second Hand Exposure: No; Do You Dip or Chew Tobacco: No; Tobacco Cessation Education Requested by Patient: No Hx Alcohol Use: No Hx Substance Use: No Preferred Language: Citizen Of [place] Income Tax Manager Required: No Beliefs That Will Affect Care: None Current Living Situation: Other Current Living Situation Comment: college campus dorm Other Information That Helps Us Care for You: No Feels Safe at Home: Yes Safety Concerns: Feels Safe At This Time Assistive Devices: None Review of Systems Review of Systems: As per above Physical Exam Constitutional: well developed, well nourished, average body habitus and + in distress Eyes: + anicteric sclerae; no conjunctival abn ormality ENMT: Ears: no external ear abnormality Nose: no external nose abnormality Moist mucous membranes Respiratory: normal respiratory effort, lungs clear to auscultation Cardiovascular: Rate/Rhythm: regular rhythm and + tachycardic No lower extremity edema Gastrointestinal (Abdomen): Abdomen soft, not rigid or distended. Tender to light palpation across entire abdomen Musculoskeletal: Moves all limbs independently Skin: no rashes, warm and dry Neurologic: No focal deficits appreciated Psychiatric: A+Ox3, euthymic affect Results & Data Results & Data Vital Signs (Past 12 Hours) Vital Signs Temp Pulse Pulse Resp BP BP Pulse Ox 09/05/24 03:17 111 H 18 117/66 97 09/05/24 00:00 90 18 118/71 98 09/04/24 23:25 106 H 09/04/24 22:00 108 H 18 106/60 98 09/04/24 21:25 90 18 111/66 98 09/04/24 20:37 94 H 18 97/63 L 100 09/04/24 19:25 18 99 09/04/24 19:18 109 H 20 97 09/04/24 19:18 120 H 24 112/68 95 09/04/24 19:16 117 H 09/04/24 18:56 36.6 C 125 H 18 104/61 99 O2 Del Method 09/05/24 03:17 Room Air 09/05/24 00:00 Room Air 09/04/24 23:25 09/04/24 22:00 Room Air 09/04/24 21:25 Room Air 09/04/24 20:37 Room Air 09/04/24 19:25 Room Air 09/04/24 19:18 Room Air 09/04/24 19:18 Room Air 09/04/24 19:16 09/04/24 18:56 Room Air Diagnostic Findings Abdomen/Pelvis CT 09/04/24 20:20 Exam(s): CT ABDOMEN + PELVIS With Contrast IV Amt: 93 ml optiray 320 EXAM: CT Abdomen and Pelvis With Intravenous Contrast CLINICAL HISTORY: Reason for exam: epigastric pain, vomiting, mono/LFTs. TECHNIQUE: Axial computed tomography images of the abdomen and pelvis with intravenous contrast. CTDI is 7.47 mGy and DLP is 375.58 mGy-cm. Automated exposure control was utilized for the study. A dose lowering technique was utilized adhering to the principles of ALARA. CONTRAST: Patient received 93 ml optiray 320 of IV contrast COMPARISON: No relevant prior studies available. FINDINGS: Lung bases: No consolidation. ABDOMEN: Liver: The liver is enlarged.. Gallbladder and bile ducts: The gallbladder is distended containing calculi. No ductal dilation. Pancreas: No mass. No ductal dilation. Spleen: The spleen is markedly enlarged.. Adrenals: No mass. Kidneys and ureters: No solid mass. No hydronephrosis. Stomach and bowel: There is fluid and air within the stomach. There are distended loops of small bowel containing fluid and air. Many of these demonstrate wall thickening. There is air and stool noted in the colon. There may be thickening of the joshi of the sigmoid colon and rectum.. PELVIS: Appendix: The appendix is not visualized.. Bladder: No calculi are noted within the bladder.. Reproductive: Unremarkable as visualized. ABDOMEN and PELVIS: Intraperitoneal space: No free air. No significant fluid collection. Bones/joints: There is a marked scoliosis.. Soft tissues: Unremarkable. Vasculature: No abdominal aortic aneurysm. Lymph nodes: No enlarged lymph nodes. IMPRESSION: The gallbladder is distended containing calculi. There is fluid and air within the stomach. There are distended loops of small bowel containing fluid and air. Many of these demonstrate wall thickening. This may represent a nonspecific enteritis. There is air and stool noted in the colon. There may be thickening of the joshi of the sigmoid colon and rectum. This may be due to under distention. Cannot exclude colitis. Hepatosplenomegaly. See discussion above. Electronically signed by: Tj Koenig MD 09/04/24 22:49 PM Gallbladder Ultrasound 09/04/24 23:11 EXAM: US gallbladder CLINICAL HISTORY: RUQ pain, transaminitis PANC: limited vis due to bowel LIVER: 12.5 cm, heterogenous appearing with ? periportal thickening and inc vascularity GB: wall = 3 mm, multiple mobile probable stones seen, Negative Loera''s CBD: 5 mm RK: 10.3 cm, slight fullness of pelvis Spleen noted to be large on exam = 21.1 cm Incidental note of ? FF adjacent to heart seen when scanning superior liver TECHNIQUE: Static ultrasound images with Grayscale and Doppler of the upper abdomen were submitted for review. COMPARISON: None. FINDINGS: The liver measures 12.5 cm with heterogeneous echotexture, nodular margins, and periportal thickening, consistent with chronic liver disease changes. The gallbladder demonstrates wall thickening measuring 3 mm with multiple mobile echogenic foci suggestive of gallstones. The common bile duct measures 5 mm in diameter. The pancreas is incompletely visualized due to overlying bowel gas. The spleen is enlarged, measuring 21.1 cm. The right kidney measures 10.3 cm with slight fullness of the renal pelvis. Mild pericardial effusion is noted. IMPRESSION: 1. Changes of chronic liver disease with marked splenomegaly. 2. Cholelithiasis with gallbladder wall thickening. Suggested clinical correlation to look for cholecystitis. 3. Mild pericardial effusion. 4. Mild right renal pelvis fullness. Electronically signed by Pedro Mayer 09-05-2024 01:50 AM Chest X-Ray 09/05/24 02:19 EXAM: XR chest 1V portable CLINICAL HISTORY: PERICARDIAL EFFUSION WTW TECHNIQUE: An X-ray image of the chest is obtained in AP projection. COMPARISON: Prior study dated 09/01/2024. FINDINGS: Pulmonary Parenchyma: Faint right lower opacity could be an infection, follow-up is needed. Hyperinflated both lung fuentes, as noted by flattening of both hemidiaphragm and increased overall lucency. Prominent both hilar and vascular markings, likely denoting pulmonary congestion. No evidence of consolidation, collapse, or focal opacities. No pulmonary nodules are identified. No evidence of pleural effusion or pleural thickening. Heart and Mediastinum: Heart size and shape are normal. No mediastinal widening or masses. No hilar or mediastinal lymphadenopathy. Bony Thorax: Thoracic spine dextroscoliosis. Bony thorax appears intact without fractures or deformities. Soft Tissues: Soft tissues overlying the chest wall are unremarkable. IMPRESSION: 1. Stable hyperinflated both lung fuentes. 2. Faint right lower opacity could be an infection, follow-up is needed. 3. Interval progressive Prominent both hilar and vascular markings, denoting pulmonary congestion. 4. No signs of pericardial effusion evident by x-ray, (noted previously by ultrasound). 5. No acute cardiopulmonary abnormalities are identified. Electronically signed by Nancy Robbins 09-05-2024 03:44 AM Supervising Physician Co-Signing Physician Notes Patient seen and examined, chart reviewed, case discussed with Dr. Oakes and I agree with the assessment and plan as above. In brief, patient is a 18yo male with history of lymphoma in remission x 7 years presenting with abdominal pain, nausea and vomiting. As above, imaging with hepatosplenomegaly, calculous gallbladder and findings suggestive of possible enteritis, possible acute cholecystitis On exam patient is in discomfort - ongoing nausea with some vomiting witnessed during exam, non-bloody/non-bilious Skin - intact, no rashes/lesions HEENT- NC/AT, MMM, Neck supple Heart - +S1/S2, regular, tachycardic Lungs - CTA anteriorly, no rales/rhonchi/wheezes Abd - soft, mildly tender diffusely without rebound/guarding/peritonitis Ext - warm, well perfused Labs and images reviewed ?viral illness Prior workup with no clear evidence of return of patient's malignancy - HSM, LAD possibly caused by mono-like illness. Continue hydration, symptomatic management Continue Zosyn Repeat LFTs in AM Appreciate General Surgery assistance Remainder as above Resident Activity Tracking Resident Involvement: Resident Care Provided Care Provided: [facility] Medicine
--- NOTE | 2024-09-05 03:45 | XRay Report ---
EXAM: XR chest 1V portable CLINICAL HISTORY: PERICARDIAL EFFUSION WTW TECHNIQUE: An X-ray image of the chest is obtained in AP projection. COMPARISON: Prior study dated 09/01/2024. FINDINGS: Pulmonary Parenchyma: Faint right lower opacity could be an infection, follow-up is needed. Hyperinflated both lung fuentes, as noted by flattening of both hemidiaphragm and increased overall lucency. Prominent both hilar and vascular markings, likely denoting pulmonary congestion. No evidence of consolidation, collapse, or focal opacities. No pulmonary nodules are identified. No evidence of pleural effusion or pleural thickening. Heart and Mediastinum: Heart size and shape are normal. No mediastinal widening or masses. No hilar or mediastinal lymphadenopathy. Bony Thorax: Thoracic spine dextroscoliosis. Bony thorax appears intact without fractures or deformities. Soft Tissues: Soft tissues overlying the chest wall are unremarkable. IMPRESSION: 1. Stable hyperinflated both lung fuenets. 2. Faint right lower opacity could be an infection, follow-up is needed. 3. Interval progressive Prominent both hilar and vascular markings, denoting pulmonary congestion. 4. No signs of pericardial effusion evident by x-ray, (noted previously by ultrasound). 5. No acute cardiopulmonary abnormalities are identified. Electronically signed by Nancy Robbins 09-05-2024 03:44 AM
[2024-09-05] MEDS: PIPERACILLIN/TAZOBACTAM 4.5 GM/100 ML BAG IV ONE (04:12)
[2024-09-05] MEDS: METOCLOPRAMIDE HCL INJ 5 MG/ML 2 ML VIAL IV STA (04:12)
[2024-09-05] MEDS: SODIUM CHLORIDE 0.9% 1,000 ML IV SCH ×2 (04:16→14:20)
[2024-09-05 04:19] LABS: Adenovirus PCR Not Detected (NotDetected); Bordetella parapertussis PCR Not Detected (NotDetected); Bordetella pertussis PCR Not Detected (NotDetected); Chlamydia pneumoniae PCR Not Detected (NotDetected); Coronavirus 229E PCR Not Detected (NotDetected); Coronavirus CoV-2 (COVID19)PCR Not Detected (NotDetected); Coronavirus HKU1 PCR Not Detected (NotDetected); Coronavirus NL63 PCR Not Detected (NotDetected); Coronavirus OC43PCR Not Detected (NotDetected); Human Metapneumovirus PCR Not Detected (NotDetected); Influenza A PCR Not Detected (NotDetected); Influenza B PCR Not Detected (NotDetected); Mycoplasma pneumoniae PCR Not Detected (NotDetected); Parainfluenza Virus 1 PCR Not Detected (NotDetected); Parainfluenza Virus 2 PCR Not Detected (NotDetected); Parainfluenza Virus 3 PCR Not Detected (NotDetected); Parainfluenza Virus 4 PCR Not Detected (NotDetected); Respiratory Syncytial VirusPCR Not Detected (NotDetected); Rhinovirus/Enterovirus PCR Not Detected (NotDetected)
[2024-09-05] MEDS: ONDANSETRON INJ 2 MG/ML 2 ML VIAL IV STA (04:43)
[2024-09-05] MEDS ORDERED: MoRPHine SULFATE 2 MG/ML CARP IV PRN (05:10)
[2024-09-05] MEDS ORDERED: MELATONIN 3 MG TAB PO PRN (05:10)
[2024-09-05] MEDS ORDERED: POLYETHYLENE (MIRALAX) 17 GM PACK PO PRN (05:10)
[2024-09-05] MEDS ORDERED: MoRPHine SULFATE 4 MG/ML 1 ML CARP\\VIAL IV PRN (05:10)
[2024-09-05 05:16] LABS: Albumin Level 3.5 gm/dl (3.4-5.0); Bilirubin Direct 0.2 mg/dl (0-0.2); Bilirubin,Total 0.8 mg/dl (0.2-1.0); Total Protein 5.6 gm/dl (6.0-8.3)
[2024-09-05 05:25] LABS: RBC Morphology Unremarkable
[2024-09-05] MEDS ORDERED: ACETAMINOPHEN 1,000 MG/100 ML VIAL IV PRN (05:27)
[2024-09-05] MEDS: ONDANSETRON INJ 2 MG/ML 2 ML VIAL IV PRN (07:35)
[2024-09-05] MEDS: KETOROLAC TROMETHAMINE 15 MG/ML VIAL IV ONE (08:03)
[2024-09-05 08:34] LABS: Eosinophils # (auto) 0.01 K/uL (0.00-0.50); Eosinophils % (auto) 0.4 %; Hemoglobin 13.5 g/dl (14.0-18.0); Lymphocytes # (auto) 0.22 K/uL (1.20-3.40); Lymphocytes % (auto) 8.2 %; Mean Corpuscular Hemoglobin 30.4 pg (25.0-34.0); Mean Corpuscular Hgb Conc 34.6 g/dL (32.0-36.0); Mean Corpuscular Volume 87.8 fL (80.0-100.0); Mean Platelet Volume 10.8 fL (9.4-12.4); Monocytes # (auto) 0.19 K/uL (0.11-0.59); Monocytes % (auto) 7.1 %; Neutrophils # (auto) 2.25 K/uL (1.40-6.50); Neutrophils % (auto) 84.3 %; Platelet Count 88 K/uL (130-400); RDW Coefficient of Variation 13.5 % (11.5-14.5); RDW Standard Deviation 43.8 fL (36.4-46.3); Red Blood Count 4.44 M/uL (4.70-6.10); White Blood Count 2.67 K/ul (4.8-10.8)
--- NOTE | 2024-09-05 08:37 | Electrocardiogram Report ---
Test Reason : Blood Pressure : */* mmHG Vent. Rate : 103 BPM Atrial Rate : 103 BPM P-R Int : 142 ms QRS Dur : 90 ms QT Int : 322 ms P-R-T Axes : 76 69 48 degrees QTcB Int : 421 ms Sinus tachycardia Diffuse Minor Nonspecific T wave abnormality Abnormal ECG No previous ECGs available Confirmed by Doug Caban ([id number]) on 09/05/2024 8:36:52 AM Referred By: REFERRED SELF Confirmed By: Doug Caban
--- NOTE | 2024-09-05 10:32 | Hospitalist Progress Note ---
Date of Service September 05, 2024 Assessment & Plan (1) Transaminitis: (2) Lymphoma in remission: (3) Cholelithiasis: (4) Abdominal pain: (5) Nausea & vomiting: Plan 18-year-old male with a PMH significant fo Lymphoma in remission and recent diagnosis of mono Abdominal Pain Nausea- Vomiting -CT A/P and gallbladder ultrasound show evidence of possible cholecystitis. - Hepatosplenomegaly ( see above) - s/p Zosyn -General surgery consulted, no surgical intervention, no clinical signs of cholecystitis - Clear liquid, advanced diet as tolerated -Zofran PRN for nausea. Tylenol, Morphine PRN for pain. Mononucleosis | Hepatosplenomegaly | Elevated LFTs -Reported to have had positive mono test at urgent care, exposed to roommate with confirmed mononucleosis -Repeat Monospot on admission was negative, repeat EBV panel pending. Respiratory biofire negative -Hepatosplenomegaly noted on CT imaging: -Mild transaminitis - resolving - CMP and CBC AM History of Lymphoma -CXR completed at urgent care reportedly showed bilateral perihilar lymphadenopathy (on 09/01) -CT and chest x-ray completed today on admission do not remark on any lymphadenopathy. CXR today read as possible faint right lower lung opacity, however lungs clear on exam and no respiratory symptoms at present. -Oncology follow up was scheduled for 09/18 at time of last ED visit Admit to: med/surg VTE Prophylaxis: Low risk, defer while awaiting further surgical evaluation Diet:Clear liquid, advanced as tolerated Code Status: Full Code Admission and Anticipated Discharge Date Admission Date: September 05, 2024 Supervising Physician Co-Signing Physician Notes I personally examined the patient and verified all talbot points of history and exam, discussed case, and agree with decision making with Dr Ruel Gustafson feeling better. Not vomiting and abdominal pain is improvedstill fairly nauseated. Abrupt onset yesterday around 4:30 PM. Prior to that he had had a cough, but not really much of any other illness. Vitals noted, in general he is awake and alert fatigued but no distress. HEENT normocephalic atraumatic mucous membranes moist. Breathing unlabored no accessory muscle use good effort. Skin shows no rashes no pallor or icterus. Neuro without focal deficits. Nausea vomiting - also with leukopenia/thrombocytopenia, hepato-/splenomegaly, CT findings consistent with enteritis, etc. --- differential fairly broad including surgical biliary illness, viral illness, tickborne illness, hematologic illness; in the end, though strongly favor viral illnessand in discussion with patient the leukopenia/thrombocytopenia is chronic for him, we both wonder if the splenomegaly is, and certainly a lot of viral enteritis is will cause transaminitis and therefore a degree of hepatomegaly. With a normal peripheral smear a few days ago, and no significant adenopathy on imaging, as well as abrupt onset of GI symptoms rather than insidious onset of fevers/malaise etc.highly doubt a recurrence of his lymphomabut resident physician did reach out to his social media content manager to discuss for completeness. In this region, tickborne illness such as anaplasmosis certainly fits the "pattern recognition"but his overall clinical picture is much more consistent with a viral enteritiswould consider empiric treatment versus retesting for tickborne illness should he not get better/the illness persist; agree with the surgical team this does not appear to be surgical biliary illnessI suspect his gallbladder is just swollen by proximity to his inflamed liver. Continue current treatment except stop empiric antibiotics. Follow closely. Otherwise as above Subjective Seen this morning, found in NAD. Refers nausea and being thristy. Surgeon in the room on rounds. Will start clear liquid diet and advanced as tolerated. Zofran for nausea. Will continue supportive measures Review of Systems Review of Systems: as per hpi Physical Exam Constitutional: well developed, well nourished and average body habitus Eyes: + anicteric sclerae; no conjunctival abn ormality ENMT: Ears: no external ear abnormality Nose: no external nose abnormality Moist mucous membranes Respiratory: normal respiratory effort, lungs clear to auscultation Cardiovascular: Rate/Rhythm: regular rhythm and + tachycardic No lower extremity edema Gastrointestinal (Abdomen): Abdomen soft, not rigid or distended. Tender to light palpation across entire abdomen Musculoskeletal: Moves all limbs independently Skin: no rashes, warm and dry Neurologic: No focal deficits appreciated Psychiatric: A+Ox3, euthymic affect Results & Data Results & Data Vital Signs (Past 12 Hours) Vital Signs Temp Pulse Pulse Resp BP Pulse Ox O2 Del Method 09/05/24 07:08 37.8 C H 101 H 18 106/63 96 Room Air 09/05/24 06:26 38.1 C H 93 H 16 115/71 98 Room Air 09/05/24 04:27 101 H 18 95/57 L 98 Room Air 09/05/24 03:30 92 H 09/05/24 03:17 111 H 18 117/66 97 Room Air 09/05/24 00:00 90 18 118/71 98 Room Air 09/04/24 23:25 106 H Resident Activity Tracking Resident Involvement: Resident Care Provided Care Provided: Adult Hospital Medicine
[2024-09-05] MEDS: PIPERACILLIN/TAZOBACTAM 4.5 GM/100 ML BAG IV SCH (10:55)
--- NOTE | 2024-09-05 11:04 | Billing Data ---
Date of Service September 05, 2024 Coding Level of Care Code 88224 INT INP/OBS CARE
[2024-09-05] MEDS: PROCHLORPERAZINE MALEATE 5 MG TAB PO ONE (12:41)
[2024-09-05] MEDS: FAMOTIDINE 10 MG TABLET PO ONE (12:41)
[2024-09-05 14:27] LABS: C Reactive Protein 3.1 mg/dl (0-0.5)
--- NOTE | 2024-09-05 15:17 | Billing Data ---
Date of Service September 05, 2024 Coding Level of Care Code 97091 SUB INP/OBS CARE
[2024-09-05 16:06] LABS: Adenovirus F 40/41 PCR Not Detected (NotDetected); Astrovirus PCR Not Detected (NotDetected); Campylobacter PCR Not Detected (NotDetected); Cryptosporidium PCR Not Detected (NotDetected); Cyclospora cayetanensis PCR Not Detected (NotDetected); Entamoeba histolytica PCR Not Detected (NotDetected); Enteroaggregative E.coli(EAEC) Not Detected (NotDetected); Enteropathogenic E.coli (EPEC) Not Detected (NotDetected); Enterotoxigenic E.coli (ETEC) Not Detected (NotDetected); Giardia lamblia PCR Not Detected (NotDetected); Plesiomonas shigelloides PCR Not Detected (NotDetected); Rotavirus A PCR Not Detected (NotDetected); Salmonella PCR Not Detected (NotDetected); Sapovirus PCR Not Detected (NotDetected); Shiga-like Toxin E.coli (STEC) Not Detected (NotDetected); Shigella/Enteroinvasive E.coli Not Detected (NotDetected); Vibrio cholerae PCR Not Detected (NotDetected); Vibrio species PCR Not Detected (NotDetected); Yersinia enterocolitica PCR Not Detected (NotDetected)
[2024-09-05 16:09] LABS: Norovirus GI/GII PCR DETECTED (NotDetected)
[2024-09-05 20:56] VITALS: RESP 18
[2024-09-05] MEDS: FAMOTIDINE 20 MG TAB PO SCH (21:57)
[2024-09-06 06:29] LABS: Hematocrit (blood only) 35.7 % (42.0-52.0); Hemoglobin 12.1 g/dl (14.0-18.0); Mean Corpuscular Hemoglobin 29.9 pg (25.0-34.0); Mean Corpuscular Hgb Conc 33.9 g/dL (32.0-36.0); Mean Corpuscular Volume 88.1 fL (80.0-100.0); Mean Platelet Volume 10.3 fL (9.4-12.4); Platelet Count 67 K/uL (130-400); RDW Coefficient of Variation 13.3 % (11.5-14.5); RDW Standard Deviation 43.6 fL (36.4-46.3); Red Blood Count 4.05 M/uL (4.70-6.10); White Blood Count 1.47 K/ul (4.8-10.8)
[2024-09-06 06:50] LABS: Albumin Globulin Ratio 1.3 (0.9-2); Albumin Level 2.8 gm/dl (3.4-5.0); BUN Creatinine Ratio 21.9 (10-20); Bilirubin,Total 0.5 mg/dl (0.2-1.0); Calcium 8.1 mg/dl (8.6-10.3); Creatinine Clr Calc Pharmacy 156.8 ml/min; Globulin 2.1 gm/dl (2.5-4.0); Magnesium 1.7 mg/dl (1.7-2.4); Phosphorus 1.7 mg/dl (2.5-4.9); Potassium 3.9 mmol/L (3.5-5.1); Total Protein 4.9 gm/dl (6.0-8.3); Uric Acid 4.9 mg/dl (2.6-7.2)
[2024-09-06 06:54] LABS: C Reactive Protein 6.46 mg/dl (0-0.5)
[2024-09-06 07:05] LABS: Basophils # (auto) 0.01 K/uL (0.00-0.20); Basophils % (auto) 0.7 %; Eosinophils # (auto) 0.06 K/uL (0.00-0.50); Eosinophils % (auto) 4.1 %; Lymphocytes # (auto) 0.54 K/uL (1.20-3.40); Lymphocytes % (auto) 36.7 %; Monocytes # (auto) 0.18 K/uL (0.11-0.59); Monocytes % (auto) 12.2 %; Neutrophils # (auto) 0.68 K/uL (1.40-6.50); Neutrophils % (auto) 46.3 %; Ovalocytes 1+
[2024-09-06] MEDS ORDERED: POTASSIUM PHOS 3 MMOL/1 ML INFUSION IV STA (07:22)
[2024-09-06 07:24] VITALS: BP 92/58; PULSE 63; TEMP 98.1; O2SAT 96
--- NOTE | 2024-09-06 07:45 | Hospitalist Progress Note ---
"Date of Service September 06, 2024 Assessment & Plan (1) Transaminitis: (2) Lymphoma in remission: (3) Cholelithiasis: (4) Abdominal pain: (5) Nausea & vomiting: Plan 18-year-old male with a PMH significant fo Lymphoma in remission and recent diagnosis of mono Abdominal Pain Nausea- Vomiting -CT A/P and gallbladder ultrasound show evidence of possible cholecystitis. - Hepatosplenomegaly ( see above) - s/p Zosyn -General surgery consulted, no surgical intervention, no clinical signs of cholecystitis - Clear liquid, advanced diet as tolerated -Zofran PRN for nausea. Tylenol, Morphine PRN for pain. Mononucleosis | Hepatosplenomegaly | Elevated LFTs -Reported to have had positive mono test at urgent care, exposed to roommate with confirmed mononucleosis -Repeat Monospot on admission was negative, repeat EBV panel pending. Respiratory biofire negative -Hepatosplenomegaly noted on CT imaging: -Mild transaminitis - resolving - CMP and CBC AM History of Lymphoma -CXR completed at urgent care reportedly showed bilateral perihilar lymphadenopathy (on 09/01) -CT and chest x-ray completed today on admission do not remark on any lymphadenopathy. CXR today read as possible faint right lower lung opacity, however lungs clear on exam and no respiratory symptoms at present. -Oncology follow up was scheduled for 09/18 at time of last ED visit Admit to: med/surg VTE Prophylaxis: Low risk, defer while awaiting further surgical evaluation Diet:Clear liquid, advanced as tolerated Code Status: Full Code Admission and Anticipated Discharge Date Admission Date: September 05, 2024 Physical Exam Constitutional: well developed, well nourished and average body habitus Eyes: + anicteric sclerae; no conjunctival abn ormality ENMT: Ears: no external ear abnormality Nose: no external nose abnormality Respiratory: normal respiratory effort, lungs clear to auscultation Cardiovascular: Rate/Rhythm: regular rhythm and + tachycardic Skin: no rashes, warm and dry Psychiatric: A+Ox3, euthymic affect Results & Data Results & Data Vital Signs (Past 12 Hours) Vital Signs Temp Pulse Resp BP Pulse Ox O2 Del Method 09/06/24 07:22 36.7 C 63 18 92/58 L 96 Room Air 09/05/24 20:56 36.9 C 60 18 106/62 99 Room Air"
[2024-09-06] MEDS ORDERED: FAMOTIDINE 10 MG TABLET PO SCH (09:00)
--- NOTE | 2024-09-06 09:02 | Surgery Progress Note ---
Date of Service September 06, 2024 Assessment & Plan (1) Cholelithiasis: Plan: He is improving clinically from a GI standpoint I think all or most of his symptoms are related to his mononucleosis and norovirus infection He does have gallstones for which she can follow-up with me as an outpatient to discuss need for cholecystectomy in the future Can advance his diet as tolerated Surgery will sign off at this time please call with any questions or concerns (2) Nausea & vomiting: Admission and Anticipated Discharge Date Admission Date: September 05, 2024 Subjective Patient seen and examined. States his abdominal pain is better. Low-grade temps. No nausea or vomiting. Review of Systems Constitutional: no fever and no chills Eyes: no blind spots and no dry eyes Respiratory: no cough and no dyspnea Cardiovascular: no chest pain and no dyspnea on exertion Gastrointestinal: + abdominal pain; no nausea and no vomit ing Genitourinary: no dysuria, no nocturia or no decreased urination Integumentary: no acne, no sores and no erythema Psychiatric: no behavioral changes and no depression Physical Exam Constitutional: WD/WN, vitals as above Eyes: PERRL, conjunctivae normal, anicteric sclerae Respiratory: normal respiratory effort, lungs clear to auscultation Cardiovascular: RRR, no murmur, no edema Gastrointestinal (Abdomen): Inspection/Auscultation: abdomen normal to inspection; abdomen not distended Percussion/Palpation: abdomen soft; abdomen nontender and no guarding Psychiatric: A+Ox3, euthymic affect Results & Data Vital Signs (Past 12 Hours) Vital Signs Temp Pulse Resp BP Pulse Ox O2 Del Method 09/06/24 07:22 36.7 C 63 18 92/58 L 96 Room Air PG Care Time/CCT Total # of Minutes Spent Total Time Spent with Patient: Total time spent is greater than 50% in coordination of care (as documented) at patient's floor/unit and/or counseling patient: Coding Level of Care Code 78199 SUB INP/OBS CARE 10/24MIN Diagnoses Cholelithiasis K80.20 Nausea & vomiting R11.2
[2024-09-06] MEDS: POT PHOSPHATE MONOBASIC W/ SOD TAB PO SCH (09:30)
--- NOTE | 2024-09-06 11:54 | Discharge Summary ---
Date of Service September 06, 2024 Admission HPI Per Admitting Provider Pineda Roldan is a 18 year-old male with a medical history significant for lymphoma, s/p appendectomy, ADHD. Patient presented to the ED due to concern of ongoing nausea/vomiting and abdominal pain. HPI obtained from patient as well as ED provider documentation. Symptoms started at approximately 4pm on 09/04. Reports that the abdominal pain originated in the epigastric region and later became more diffuse across his entire abdomen. States the last thing he was able to eat was a burger at lunch, since symptoms started he has not eaten anything and had an episode of vomiting after having some ice chips. Patient denies chest pain or shortness of breath. States that the pain and nausea improve with the medications he has received in the ED but it is short lived. Endorses body aches and chills, requests additional warm blankets during encounter. Patient appears visibly uncomfortable during encounter, short responses to questions but is alert/oriented. ED Records from 09/01 indicate that the patient was evaluated at [facility] on the same day due to exposure to mononucleosis, two weeks of a cough and some congestion (his roommate had mono). At [facility], he had a chest x-ray completed which showed "bilateral perihilar lymphadenopathy measuring 5 to 6 mm", with patient's history of lymphoma (in remission for approximately 7 years) it was recommended he be evaluated in the ED on 09/01. Patient also reportedly tested positive for mononucleosis at [facility]. During ED evaluation on 09/01, the ED provider was able to contact his oncologist group in [place] and additional labs (uric acid, LDH, peripheral smear) were completed at their request. Patient was also scheduled for follow up with the oncologist when he returns home to [place] for winter break later in August. ED Course: -Chest x-ray -CT A/P -Gallbladder ultrasound -CBC, CMP -Respiratory biofire -EBV panel, monospot Principal Diagnosis Norovirus Discharge Exam Constitutional WD/WN, vitals as above Respiratory normal respiratory effort, lungs clear to auscultation Cardiovascular RRR, no murmur, no edema Gastrointestinal (Abdomen) normal bowel sounds, soft, nontender, no hepatosplenomegaly Discharge Data Allergies Allergy/AdvReac Type Severity Reaction Status Date / Time No Known Allergies Allergy Unverified 09/05/24 02:04 Consultations 09/05/24 02:39 Consult General Surgery Routine 09/05/24 03:24 ED Decision to Admit Stat 09/06/24 09:55 Burn CD for patient Routine Ordered Studies Abdomen/Pelvis CT 09/04/24 20:20 Exam(s): CT ABDOMEN + PELVIS With Contrast IV Amt: 93 ml optiray 320 EXAM: CT Abdomen and Pelvis With Intravenous Contrast CLINICAL HISTORY: Reason for exam: epigastric pain, vomiting, mono/LFTs. TECHNIQUE: Axial computed tomography images of the abdomen and pelvis with intravenous contrast. CTDI is 7.47 mGy and DLP is 375.58 mGy-cm. Automated exposure control was utilized for the study. A dose lowering technique was utilized adhering to the principles of ALARA. CONTRAST: Patient received 93 ml optiray 320 of IV contrast COMPARISON: No relevant prior studies available. FINDINGS: Lung bases: No consolidation. ABDOMEN: Liver: The liver is enlarged.. Gallbladder and bile ducts: The gallbladder is distended containing calculi. No ductal dilation. Pancreas: No mass. No ductal dilation. Spleen: The spleen is markedly enlarged.. Adrenals: No mass. Kidneys and ureters: No solid mass. No hydronephrosis. Stomach and bowel: There is fluid and air within the stomach. There are distended loops of small bowel containing fluid and air. Many of these demonstrate wall thickening. There is air and stool noted in the colon. There may be thickening of the joshi of the sigmoid colon and rectum.. PELVIS: Appendix: The appendix is not visualized.. Bladder: No calculi are noted within the bladder.. Reproductive: Unremarkable as visualized. ABDOMEN and PELVIS: Intraperitoneal space: No free air. No significant fluid collection. Bones/joints: There is a marked scoliosis.. Soft tissues: Unremarkable. Vasculature: No abdominal aortic aneurysm. Lymph nodes: No enlarged lymph nodes. IMPRESSION: The gallbladder is distended containing calculi. There is fluid and air within the stomach. There are distended loops of small bowel containing fluid and air. Many of these demonstrate wall thickening. This may represent a nonspecific enteritis. There is air and stool noted in the colon. There may be thickening of the joshi of the sigmoid colon and rectum. This may be due to under distention. Cannot exclude colitis. Hepatosplenomegaly. See discussion above. Electronically signed by: Tj Koenig MD 09/04/24 22:49 PM Gallbladder Ultrasound 09/04/24 23:11 EXAM: US gallbladder CLINICAL HISTORY: RUQ pain, transaminitis PANC: limited vis due to bowel LIVER: 12.5 cm, heterogenous appearing with ? periportal thickening and inc vascularity GB: wall = 3 mm, multiple mobile probable stones seen, Negative Loera''s CBD: 5 mm RK: 10.3 cm, slight fullness of pelvis Spleen noted to be large on exam = 21.1 cm Incidental note of ? FF adjacent to heart seen when scanning superior liver TECHNIQUE: Static ultrasound images with Grayscale and Doppler of the upper abdomen were submitted for review. COMPARISON: None. FINDINGS: The liver measures 12.5 cm with heterogeneous echotexture, nodular margins, and periportal thickening, consistent with chronic liver disease changes. The gallbladder demonstrates wall thickening measuring 3 mm with multiple mobile echogenic foci suggestive of gallstones. The common bile duct measures 5 mm in diameter. The pancreas is incompletely visualized due to overlying bowel gas. The spleen is enlarged, measuring 21.1 cm. The right kidney measures 10.3 cm with slight fullness of the renal pelvis. Mild pericardial effusion is noted. IMPRESSION: 1. Changes of chronic liver disease with marked splenomegaly. 2. Cholelithiasis with gallbladder wall thickening. Suggested clinical correlation to look for cholecystitis. 3. Mild pericardial effusion. 4. Mild right renal pelvis fullness. Electronically signed by Pedro Mayer 09-05-2024 01:50 AM Chest X-Ray 09/05/24 02:19 EXAM: XR chest 1V portable CLINICAL HISTORY: PERICARDIAL EFFUSION WTW TECHNIQUE: An X-ray image of the chest is obtained in AP projection. COMPARISON: Prior study dated 09/01/2024. FINDINGS: Pulmonary Parenchyma: Faint right lower opacity could be an infection, follow-up is needed. Hyperinflated both lung fuentes, as noted by flattening of both hemidiaphragm and increased overall lucency. Prominent both hilar and vascular markings, likely denoting pulmonary congestion. No evidence of consolidation, collapse, or focal opacities. No pulmonary nodules are identified. No evidence of pleural effusion or pleural thickening. Heart and Mediastinum: Heart size and shape are normal. No mediastinal widening or masses. No hilar or mediastinal lymphadenopathy. Bony Thorax: Thoracic spine dextroscoliosis. Bony thorax appears intact without fractures or deformities. Soft Tissues: Soft tissues overlying the chest wall are unremarkable. IMPRESSION: 1. Stable hyperinflated both lung fuentes. 2. Faint right lower opacity could be an infection, follow-up is needed. 3. Interval progressive Prominent both hilar and vascular markings, denoting pulmonary congestion. 4. No signs of pericardial effusion evident by x-ray, (noted previously by ultrasound). 5. No acute cardiopulmonary abnormalities are identified. Electronically signed by Nancy Robbins 09-05-2024 03:44 AM 09/04/24 20:20 CT abd pelvis IV con only Stat 09/04/24 23:11 US gallbladder Stat Hospital Course (1) Transaminitis: (2) Lymphoma in remission: (3) Cholelithiasis: (4) Abdominal pain: (5) Nausea & vomiting: Plan 18-year-old male with a PMH significant fo Lymphoma in remission and recent diagnosis of mono Norovirus -Abdominal Pain and Nausea- Vomiting -CT A/P and gallbladder ultrasound show evidence of possible cholecystitis and Hepatosplenomegaly. Distended loops of small bowel representing nonspecific enteritis and thickening of joshi of sigmoid colon/rectum -General surgery consulted, no surgical intervention, no clinical signs of cholecystitis, just cholelithiasis. Can follow outpatient to discussed cholecystectomy in the future - Symptoms resolved after symptomatic treatment. -Sent with [facility] Follow up with PCP within a week Recent Mononucleosis | Hepatosplenomegaly | Elevated LFTs -Reported to have had positive mono test at urgent care, exposed to roommate with confirmed mononucleosis -Repeat Monospot on admission was negative, repeat EBV panel pending. Respiratory biofire negative -Hepatosplenomegaly noted on CT imaging -Mild transaminitis - resolved -Pending hepatitis panel - Avoid contact sports History of Lymphoma - remission for 5 years Thrombocytopenia/ leukopenia -CXR completed at urgent care reportedly showed bilateral perihilar lymphadenopathy (on 09/01) -CT and chest x-ray completed today on admission do not remark on any lymphadenopathy. CXR today read as possible faint right lower lung opacity, however lungs clear on exam and no respiratory symptoms at present. - Patient follow with Dr. Londono at [facility]. Dr. Villalobos (home improvement contractor [facility]) was contacted. No concern of lymphoma at this moment. Agreed with hepatosplenomegaly secondary to recent mononucleosis. ESR:8, Uric acid:4.9 CRP: 6.46, lactate dehydrogenase: 98 Oncology follow up scheduled for 09/18 Total Time Total Time Spent Total Time Spent (In Minutes): <30 Discharge Plan Discharge Items Patient Disposition: Home - Self-Care Reason For Visit: ABDOMINAL PAIN Discharge Diagnosis: Norovirus Mononucleosis Activity: Per Instructions section Exercise Comment: Avoid contact sports Non-emergency contact: Primary Care Provider Call non-emergency contact if: you have any medication questions and your symptoms worsen Follow-up/Referrals: [facility] [Primary Care Provider] - Diet: Regular Addtl Attending Provider Instructions: You were admitted due to abdominal pain and nausea. You were found with norovirus which is a GI virus. Symptoms improved with hydration and symptomatic treatment Your CT scan showed cholelithiasis (gallstones), you can follow outpatient with Surgery to discuss cholecystectomy in the future You liver and spleen are enlarged, this is due to recent mononucleosis. Do not play contact sports for 4 weeks. Do not lift anything heavy. Too much activity increases the chance that your spleen may break open (rupture). Drink plenty of fluids Take zofran as needed for nausea Make a follow up appointment with PCP in a week Pending Studies at Discharge: No Stand-Alone Forms: My [employer], Smoking Cessation Medications and DC Order Prescriptions: New ondansetron 4 mg tablet,disintegrating 4 mg PO Q8H 3 Days Qty: 9 0RF famotidine [Pepcid] 20 mg tablet 20 mg PO DAILY Qty: 7 0RF Continued methylphenidate HCl [Concerta] 18 mg Tablet Extended Release 24hr 18 mg PO QAM methylphenidate HCl [Ritalin] 10 mg Tablet 10 mg PO DAILY PRN (Reason: DIRECTED) Discharge Orders: Discharge Order (Routine); Ordered 09/06/24 Ordered By: Mindy Rodriguez/Other Patient Handouts: Mononucleosis (Carter), Understanding Norovirus Admission Data Admit Date/Time: 09/05/24 04:31 Attending Provider: Narinder Abernathy Admit Provider: Jeniffer Oakes Primary Care Provider: [facility] Other Providers: Alexander Ac; Bryanna Walden Other Interventions: Discharge Summary Assessment (RN) Last Done: 09/06/24 11:46 Supervising Physician Co-Signing Physician Notes I personally examined the patient and verified all talbot points of history and exa m, discussed case, and agree with decision making with Dr Ruel Gustafson feeling better. Eating better. No abdominal pain no nausea no fevers resident physician discussed case with his home oncology team. Vitals noted, in general he is awake and alert fatigued but no distress. HEENT normocephalic atraumatic mucous membranes moist. Breathing unlabored no accessory muscle use good effort. Skin shows no rashes no pallor or icterus. Neuro without focal deficits. Nausea vomiting - Appears to have had 2 different viral processes at [facility] or a mono like virus and then norovirus. Improving. Safe/stable for home. As above. Discussed his neutropeniaalthough he does run chronically low. His hematology team was kept abreast of his progress throughout the hospital and they will follow-up with him as an outpatient. -otherwise as above
--- NOTE | 2024-09-06 17:36 | Billing Data ---
Date of Service September 06, 2024 Coding Level of Care Code 90645 IN/OBS DISCH 30 MIN/LESS
[2024-09-07 07:10] LABS: Toxic Vacuolation 2+
[2024-09-07 10:04] LABS: Hepatitis B Surface Antibody Immune
[2024-09-07 11:03] LABS: Hep B Surface Ag with confirm Negative (Negative)
[2024-09-07 14:58] LABS: EBV Nuclear Ag Antibody <18.00 U/mL; EBV Virus Capsid Ag IgG Ab <18.00 U/mL; Epstein Barr Virus Early Ag Ab <9.00 U/mL
[2024-09-08 16:22] LABS: Hepatitis B Core Antibody IgM NON-REACTIVE (NON-REACTIVE)
[2024-09-09 09:22] LABS: Hepatitis A Antibody IgM NON-REACTIVE (NON-REACTIVE)
[2024-09-09 09:23] LABS: Hepatitis A Antibody Total REACTIVE
== END 2024-09-06 12:37 | disposition home or self-care (01) | DRG 392 ==
LOC: ED 18:48 → SUATTDRO 09-05 04:31 → EDINP 09-05 04:31 → 3E 09-05 05:11